=== PATIENT | male | born 1975 | race Caucasian/White ===

== ENCOUNTER 2022-09-07 13:25 | Emergency (ER) | payer OTHER, SELFPAY ==
--- NOTE | 2022-09-07 13:30 | RT.EKG_ITS ---
APPROVED REPORT Exam: Resting ECG Reason for Exam: chest pain Patient Location: E HR:91 bpm ECG Measurements Heart Rate 91 AXIS MT 150 P 48 QRSd 86 QRS 11 QT 356 T 36 QTc 438 Conclusion Sinus rhythm...normal P axis, V-rate 60- 99
[2022-09-07 13:45] VITALS: BP 141/80; PULSE 90; RESP 20; TEMP 37; O2SAT 99
--- NOTE | 2022-09-07 13:58 | ED.GENADUL_ITS ---
Discharge Plan Disposition Patient Disposition: HOME Condition: Stable Discharge Details Clinical Impression: Epigastric abdominal pain, Esophageal lesion, Lymphadenopathy, mediastinal, Opioid use disorder Primary Care Provider: Unknown,Unknown ED Provider: Sukumar Haskins Home Meds and New Rx's Prescriptions: New pantoprazole [Protonix] 40 mg tablet,delayed release (DR/EC) 40 mg PO DAILY Qty: 30 0RF Discharge Instructions Instructions: Opioid Use Disorder (ED) Additional Instructions: Please take medication as prescribed. Do not take Motrin. Please take acetaminophen (tylenol) - 650mg every 6 hours by mouth as needed for pain. CT of your abdomen and pelvis reveals lesion in your esophagus that is concerning for cancer. It is imperative that you follow-up with [facility] as soon as possible. Please call [facility] gastroenterology on Friday to arrange timely follow-up. Please contact your primary care physician to arrange follow-up. Return to the ER immediately for any worsening or new concerning symptoms. Referrals: [facility] [Outside] [facility] [Outside] Discharge Data Discharge Date/Time-TO BE ENTERED AT DEPARTURE: 09/07/22 17:48 Medical Decision Making 1403--47-year-old male with history of IV drug use, found to have concerning esophageal lesions earlier with plan for biopsy and resection last January, noncompliant with treatment plan, now with epigastric abdominal and chest discomfort over the past 4 days it is worse with exertion and associated dizziness as well as dark stool. Patient is patient is tender in his epigastric area which reproduces pain. Patient is hemodynamically stable. Concern for lower esophageal lesion, consider gastric ulcer perforation versus other acute surgical pathology. Plan to obtain CT imaging. I will initiate treatment with Pepcid 20 mill equivalents IV. 1729 --CT of the abdomen pelvis was interpreted by radiology: Marked wall thickening and mucosal irregularity of distal esophagus with associated paraesophageal lymphadenopathy, suspicious for esophageal neoplasm. Probable hepatic hemangioma, however given the possibility of esophageal carcinoma, additional evaluation with multiphasic hepatic CT would be recommended. I called and consulted gastroenterology at [facility], I discussed ED presentation and course with on-call physician, he reviewed department records and agrees with outpatient follow-up and will help arrange this. Labs reviewed and nondiagnostic. Mild leukocytosis and mild anemia noted. I have prescribed Protonix and advised him to stop taking Motrin. I encouraged him to follow-up with gastroenterology and reviewed all results with him and my concerns. Regarding opioid use disorder, patient is not exhibiting withdrawal at this time. I will refer him to [facility] (formerly [facility]3] and also [facility]. Patient has access to naloxone at home. Lab Data Lab results reviewed: Yes I reviewed the patient's lab results. Labs: Laboratory Tests Range/Units 09/07/22 09/07/22 09/07/22 14:00 14:00 14:00 WBC (4.4-10.8) 10^3/uL RBC (4.36-5.78) 10^6/uL Hgb (13.5-17.5) g/dL Hct (40.0-50.0) % MCV (80-95) fL MCH (27.0-33.0) pg MCHC (32.0-36.0) % RDW (11.8-14.1) % Plt Count (130-400) 10^3/uL MPV (8.0-11.0) fL Immature Gran % Neutrophils % Lymphocytes % Monocytes % Eosinophils % Basophils % Nucleated RBC % (0.0-0.3) % Absolute Neutrophils (1.2-6.7) 10^3/uL Absolute Lymphocytes (1.2-3.4) 10^3/uL Absolute Monocytes (0.1-0.8) 10^3/uL Absolute Eosinophils (0.0-0.7) 10^3/uL Absolute Basophils (0.0-0.2) 10^3/uL VBG Lactate (0.6-1.4) mmol/L 1.8 H Sodium (136-145) mmol/L Potassium (3.5-5.1) mmol/L Chloride (98-107) mmol/L Carbon Dioxide (21.0-32.0) mmol/L Anion Gap (3-11) mmol/L BUN (7-18) mg/dL Creatinine (0.70-1.30) mg/dL Est GFR (CKD-EPI 2020) (mL/min/1.73m2) Glucose (74-106) mg/dL Calcium (8.5-10.1) mg/dL Total Bilirubin (0.2-1.0) mg/dL AST (15-37) U/L ALT (16-63) U/L Alkaline Phosphatase (46-116) U/L Troponin I (<or=60) ng/L Total Protein (6.4-8.2) g/dL Albumin (3.4-5.0) g/dL Lipase Cancelled Patient ABO/Rh A Negative Antibody Screen NEGATIVE Range/Units 09/07/22 09/07/22 09/07/22 14:00 14:00 16:30 WBC (4.4-10.8) 10^3/uL 12.87 H RBC (4.36-5.78) 10^6/uL 4.88 Hgb (13.5-17.5) g/dL 11.6 L Hct (40.0-50.0) % 38.5 L MCV (80-95) fL 79 L MCH (27.0-33.0) pg 23.8 L MCHC (32.0-36.0) % 30.1 L RDW (11.8-14.1) % 16.1 H Plt Count (130-400) 10^3/uL 367 MPV (8.0-11.0) fL 10.2 Immature Gran % 0.4 Neutrophils % 78.4 Lymphocytes % 13.1 Monocytes % 6.9 Eosinophils % 0.9 Basophils % 0.3 Nucleated RBC % (0.0-0.3) % 0.0 Absolute Neutrophils (1.2-6.7) 10^3/uL 10.09 H Absolute Lymphocytes (1.2-3.4) 10^3/uL 1.69 Absolute Monocytes (0.1-0.8) 10^3/uL 0.89 H Absolute Eosinophils (0.0-0.7) 10^3/uL 0.12 Absolute Basophils (0.0-0.2) 10^3/uL 0.04 VBG Lactate (0.6-1.4) mmol/L Sodium (136-145) mmol/L 133 L Potassium (3.5-5.1) mmol/L 4.4 Chloride (98-107) mmol/L 97 L Carbon Dioxide (21.0-32.0) mmol/L 29.4 Anion Gap (3-11) mmol/L 6.6 BUN (7-18) mg/dL 30 H Creatinine (0.70-1.30) mg/dL 1.3 Est GFR (CKD-EPI 2020) (mL/min/1.73m2) 67.34 Glucose (74-106) mg/dL 101 Calcium (8.5-10.1) mg/dL 9.1 Total Bilirubin (0.2-1.0) mg/dL 0.5 AST (15-37) U/L 16 ALT (16-63) U/L 30 Alkaline Phosphatase (46-116) U/L 68 Troponin I (<or=60) ng/L < 50 < 50 Total Protein (6.4-8.2) g/dL 8.0 Albumin (3.4-5.0) g/dL 3.6 Lipase 32 Patient ABO/Rh Antibody Screen HPI General Mode of arrival: ambulatory . Date/Time Provider Initiated Documentation: 09/07/22 13:39 . Limitations to Documentation: no limitations . Information obtained by: patient . HPI Narrative: 47-year-old male with history of IV drug use, here with chief complaint of upper abdominal pain. Patient notes pain has been ongoing for the past 4 days. Pain is worse with exertion. Pain is described as soreness and intermittently sharp. He has associated diaphoresis and nausea as well as dizziness. He does note black stool. Of note, patient states he he was being worked up for esophageal lesions that were concerning approximately 8 months ago and did not follow through with treatment plan which apparently included biopsy and res ection. Related Data Home Medications Medication Instructions Recorded Confirmed pantoprazole 40 mg tablet,delayed 40 mg PO DAILY #30 tabs 09/07/22 release (Protonix) Previous Rx's Medication Instructions Recorded pantoprazole 40 mg tablet,delayed 40 mg PO DAILY #30 tabs 09/07/22 release (Protonix) Allergies Allergy/AdvReac Type Severity Reaction Status Date / Time No Known Allergies Allergy Unverified 09/07/22 14:08 Review of Systems All systems reviewed & are unremarkable except as noted in HPI and below Constitutional Constitutional: Denies fever(s) Cardiovascular Cardiovascular: Denies chest pain Gastrointestinal Gastrointestinal: Reports abdominal pain, Reports heartburn and Reports nausea PFSH All Active Problems (Updated 09/07/22 @ 17:39 by Sukumar Haskins MD) Epigastric abdominal pain (Acute) Esophageal lesion (Acute) Lymphadenopathy, mediastinal (Acute) Opioid use disorder (Acute) Social History Smoking/Tobacco Use Status: Never Smoking risk assessment performed?: Yes Alcohol Intake: never Drug use: Daily Substance use type: marijuana and opiates Do you feel safe at home: Yes Do you feel safe in your relationship?: Yes Exam Const General: cooperative and no acute distress HENMT Mouth: moist mucous membranes Eyes Conjunctivae: normal conjunctivae Sclera: normal sclerae Neck Neck: trachea midline Resp Auscultation: clear to auscultation bilaterally, no rales, no rhonchi and no wheezes Cardio Rate: regular rate and not tachycardic Rhythm: regular rhythm GI Palpation: soft, not firm, no guarding, no masses, not rigid and tender in the epigastrum Skin General skin exam: no rashes or lesions noted Neuro General: patient alert, patient awake and tone normal Extrem General: no edema Psych Appearance: grossly normal Mental Status: mental status grossly normal
[2022-09-07 14:01] VITALS: BP 141/80; PULSE 77; PULSE 79; RESP 11; O2SAT 99
[2022-09-07 14:04] VITALS: RESP 18
[2022-09-07 14:09] LABS: Lactate 1.8 mmol/L (0.6-1.4)
[2022-09-07 14:13] LABS: Abs Immature Grans 0.05 10^3/uL (0.0-0.06); Absolute Basophil Count 0.04 10^3/uL (0.0-0.2); Absolute Eosinophil Count 0.12 10^3/uL (0.0-0.7); Absolute Lymphocyte Count 1.69 10^3/uL (1.2-3.4); Absolute Monocyte Count 0.89 10^3/uL (0.1-0.8); Absolute Neutrophil Count 10.09 10^3/uL (1.2-6.7); Basophils % 0.3; Eosinophils % 0.9; HCT 38.5 % (40.0-50.0); HGB 11.6 g/dL (13.5-17.5); Immature Grans % 0.4; Lymphocytes % 13.1; MCH 23.8 pg (27.0-33.0); MCHC 30.1 % (32.0-36.0); MCV 79 fL (80-95); MPV 10.2 fL (8.0-11.0); Monocytes % 6.9; Neutrophils % 78.4; Platelet Count 367 10^3/uL (130-400); RBC 4.88 10^6/uL (4.36-5.78); RDW 16.1 % (11.8-14.1); RDW-SD 45.8 fL; WBC 12.87 10^3/uL (4.4-10.8)
[2022-09-07 14:15] VITALS: BP 146/88; PULSE 75; PULSE 81; RESP 14
[2022-09-07] MEDS: FAMOTIDINE 20 MG in Normal Saline 100 ML 400 MG IVPB (14:15)
[2022-09-07 14:43] LABS: ALT 30 U/L (16-63); AST 16 U/L (15-37); Albumin 3.6 g/dL (3.4-5.0); Alkaline Phosphatase 68 U/L (46-116); Anion Gap 6.6 mmol/L (3-11); BUN 30 mg/dL (7-18); Bilirubin, Total 0.5 mg/dL (0.2-1.0); CO2 29.4 mmol/L (21.0-32.0); CREATININE 1.3 mg/dL (0.70-1.30); Calcium 9.1 mg/dL (8.5-10.1); Chloride 97 mmol/L (98-107); Estimated GFR 67.34 (mL/min/1.73m2); Glucose 101 mg/dL (74-106); Lipase 32 U/L (73-393); Potassium 4.4 mmol/L (3.5-5.1); Sodium 133 mmol/L (136-145); Troponin I < 50 ng/L (<or=60)
[2022-09-07] MEDS: Omnipaque 350 MG/ML 500 ML BTL-Imaging package IJ (15:21)
[2022-09-07] MEDS: Normal Saline Flush 10 ML SYR IVP (15:22)
--- NOTE | 2022-09-07 15:27 | DI.CT_ITS ---
Exam(s) CT ABDOMEN PELVIS W EXAM: CT ABDOMEN PELVIS W CLINICAL HISTORY: epigastric abdominal pain, esaphageal lesions TECHNIQUE: COMPARISON: No exams were available for comparison FINDINGS: CT examination of the abdomen and pelvis was performed with bolus infusion of 100 cc of Omnipaque 350 . Images obtained through the lung bases are unremarkable. Patient reportedly has a history of an esophageal lesion. The distal esophagus appears to have a mar kedly thickened wall and irregular mucosal surface, the findings would be suspicious for neoplastic d isease. There are few mildly enlarged lymph nodes at the GE junction. No gross evidence of esophage al rupture involving the visualized portions of the mediastinum. No evidence of obstruction at this time. The liver contains a 3.4 cm in diameter peripheral nodular enhancing caudate lobe lesion, this is mos t consistent with hemangioma, however considering the possibility of esophageal carcinoma, metastatic disease is not excluded and a multiphasic hepatic CT or MR examination would be recommended.. Spleen is unremarkable in appearance except for a few small calcified granulomas... Gallbladder and bile ducts are unremarkable. Pancreas is unremarkable in appearance. Adrenals appear normal bilaterally. Kidneys appear normal except for a question mild left lower pole renal cortical scarring with no evid ence of renal mass, hydronephrosis, or nephrolithiasis. Unremarkable bladder. There is no evidence of abdominal or pelvic adenopathy apart from the aforementioned mildly prominent GE junction nodes. Abdominal aorta is of normal diameter and no abnormality is seen involving major visceral branches.. Appendix appears to have been removed.. No evidence diverticulitis or bowel obstruction. No significant abdominal wall hernia seen. Impression: Marked wall thickening and mucosal irregularity of distal esophagus with associated paraesophageal ly mphadenopathy, suspicious for esophageal neoplasm. Probable hepatic hemangioma, however given the possibility of esophageal carcinoma, additional evalua tion with multiphasic hepatic CT would be recommended. RADIATION DOSE DELIVERED: 700.35mGy.cm Total DLP 700.35mGy.cm Total DLP !Error CTDIvol DATA REPOSITORY: All CT scans at this facility are submitted to the National Radiology Data Registry (NRDR) Dose Index Registry (DIR) with the [employer] ([employer]). RADIATION OPTIMIZATION: All CT scans at this facility use at least one of these dose optimization te chniques: automated exposure control; mA and/or kV adjustment per patient size (includes targeted exa ms where dose is matched to clinical indication); or iterative reconstruction.
[2022-09-07] MEDS: Mylanta Suspension 30 ML CUP PO (16:24)
[2022-09-07 16:54] LABS: Troponin I < 50 ng/L (<or=60)
== END 2022-09-07 17:48 | disposition home or self-care (01) ==
PROVIDERS: Emergency Provider Student in an Organized Health Care Education/Training Program
DX: K22.9 Disease of esophagus, unspecified (principal); R59.0 Localized enlarged lymph nodes; R93.89 Abnormal findings on diagnostic imaging of other specified body structures; R07.89 Other chest pain; D64.9 Anemia, unspecified; D72.829 Elevated white blood cell count, unspecified; F11.10 Opioid abuse, uncomplicated
CPT/HCPCS: 36415; 80053; 83690; 86850; 86900; 86901; 93005; 96365; 99285; 74177; 83605; 84484; 85025; 93010